=== PATIENT | male | born 1975 | race Hispanic/Latino ===

== ENCOUNTER 2023-01-20 10:47 | Observation (INO) | payer OTHER ==
[~2023-01-20] VITALS: Ht 162.6 cm; Wt 107.0 kg
[2023-01-20] MEDS ORDERED: ASPIRIN 81 MG CHEW TAB PO STA (11:01)
[2023-01-20] MEDS ORDERED: HYDRALAZINE HCL 20 MG/ML VIAL IV STA (11:01)
[2023-01-20] MEDS ORDERED: LABETALOL HCL 5 MG/ML 20ML VIAL IV STA (11:01)
[2023-01-20] MEDS ORDERED: HYDRALAZINE HCL 20 MG/ML VIAL ONE (11:17)
[2023-01-20 11:20] LABS: BASOPHILS # (AUTO) 0.1 (0.0-0.1); BASOPHILS % 1.5 % (0.0-1.0); EOSINOPHILS # (AUTO) 0.3 (0.0-0.4); HEMATOCRIT 51.4 % (38.2-49.6); HEMOGLOBIN 16.9 g/dL (14.0-18.0); LYMPHOCYTES # (AUTO) 3.2 (1.0-3.2); LYMPHOCYTES % 42.3 % (18.0-39.1); MEAN CORPUSCULAR HEMOGLOBIN 28.9 pg (28-32); MEAN CORPUSCULAR HGB CONC 32.9 g/dL (31-35); MONOCYTES # (AUTO) 0.6 (0.2-0.8); MONOCYTES % 7.5 % (4.4-11.3); NEUTROPHILS # (AUTO) 3.4 (2.1-6.9); NEUTROPHILS % 44.4 % (38.7-80.0); PLATELET COUNT 237 x10e3/uL (140-360); RED BLOOD COUNT 5.84 x10e6/uL (4.3-5.7); RED CELL DISTRIBUTION WIDTH 15.8 % (11.7-14.4)
[2023-01-20 11:58] LABS: INR 0.98; PROTHROMBIN TIME 13.5 seconds (11.9-14.5)
[2023-01-20 11:59] LABS: PARTIAL THROMBOPLASTIN TIME 34.8 seconds (23.8-35.5)
[2023-01-20 12:06] LABS: ALANINE AMINOTRANSFERASE 41 IU/L (0-55); ALBUMIN/GLOBULIN RATIO 1.3 (0.8-2.0); ALKALINE PHOSPHATASE 84 IU/L (40-150); ANION GAP 13.6 mmol/L (8-16); BLOOD UREA NITROGEN 9 mg/dL (7-26); BUN/CREATININE RATIO 9 (6-25); CALCIUM 8.6 mg/dL (8.4-10.2); CARBON DIOXIDE 26 mmol/L (22-29); CHLORIDE 104 mmol/L (98-107); CREATINE KINASE 137 IU/L (30-200); CREATININE, SERUM 0.96 mg/dL (0.72-1.25); GLUCOSE 111 mg/dL (74-118); MAGNESIUM 2.2 MG/DL (1.3-2.1); POTASSIUM 3.6 mmol/L (3.5-5.1); SODIUM 140 mmol/L (136-145)
[2023-01-20] MEDS ORDERED: NIFEDIPINE CR 30 MG TAB PO ONE (12:30)
[2023-01-20] MEDS ORDERED: HYDRALAZINE HCL 20 MG/ML VIAL IV PRN (12:45)
[2023-01-20] MEDS ORDERED: ONDANSETRON HCL INJ 2MG/ML 2ML 2 MG/ML VIAL IV PRN (12:45)
[2023-01-20] MEDS ORDERED: PANTOPRAZOLE SO40 MG PO (13:17)
[2023-01-20] MEDS ORDERED: LOPRESSOR25 MG PO (13:18)
[2023-01-20] MEDS ORDERED: PROCARDIA XL30 MG (13:18)
[2023-01-20] MEDS ORDERED: HYDRALAZINE HCL25 MG PO (13:19)
[2023-01-20 15:20] VITALS: BP 180/110
[2023-01-20 15:33] VITALS: BP 180/110
[2023-01-20 17:42] VITALS: BP 155/92
[2023-01-20] MEDS: METOPROLOL TARTRATE 50 MG TAB PO SCH (17:49)
[2023-01-20 19:16] LABS: CREATINE KINASE MB 1.4 ng/mL (0-5.0)
[2023-01-20 19:58] VITALS: BP 149/88
[2023-01-20 20:00] VITALS: BP 149/88
[2023-01-20] MEDS: ACETAMINOPHEN 325 MG TAB PO PRN (20:14)
[2023-01-20] MEDS ORDERED: ATORVASTATIN 20 MG TAB PO SCH (21:00)
[2023-01-20] MEDS ORDERED: NIFEDIPINE CR 30 MG TAB PO SCH (21:00)
[2023-01-21 00:45] LABS: CREATINE KINASE MB 1.5 ng/mL (0-5.0)
[2023-01-21 01:13] VITALS: BP 129/78
[2023-01-21 05:12] LABS: BASOPHILS # (AUTO) 0.1 (0.0-0.1); BASOPHILS % 1.4 % (0.0-1.0); EOSINOPHILS # (AUTO) 0.3 (0.0-0.4); EOSINOPHILS % 4.2 % (0.0-6.0); HEMATOCRIT 50.9 % (38.2-49.6); HEMOGLOBIN 16.4 g/dL (14.0-18.0); LYMPHOCYTES # (AUTO) 2.8 (1.0-3.2); LYMPHOCYTES % 38.6 % (18.0-39.1); MEAN CORPUSCULAR HGB CONC 32.2 g/dL (31-35); MEAN CORPUSCULAR VOLUME 90.1 fL (81-99); MONOCYTES # (AUTO) 0.6 (0.2-0.8); MONOCYTES % 7.9 % (4.4-11.3); NEUTROPHILS # (AUTO) 3.5 (2.1-6.9); NEUTROPHILS % 47.5 % (38.7-80.0); PLATELET COUNT 242 x10e3/uL (140-360); RED BLOOD COUNT 5.65 x10e6/uL (4.3-5.7); RED CELL DISTRIBUTION WIDTH 15.8 % (11.7-14.4)
[2023-01-21 05:26] VITALS: BP 137/69
[2023-01-21 05:26] LABS: ALBUMIN 3.4 g/dL (3.5-5.0); ALBUMIN/GLOBULIN RATIO 1.2 (0.8-2.0); ANION GAP 13.4 mmol/L (8-16); CALCIUM 8.6 mg/dL (8.4-10.2); CREATININE, SERUM 0.92 mg/dL (0.72-1.25); POTASSIUM 3.4 mmol/L (3.5-5.1)
[2023-01-21 08:33] LABS: CREATINE KINASE MB 1.6 ng/mL (0-5.0)
[2023-01-21 08:35] VITALS: BP 141/90
[2023-01-21] MEDS ORDERED: LOSARTAN POTASSIUM 100 MG TAB PO SCH (09:00)
[2023-01-21] MEDS ORDERED: ASPIRIN 81 MG ENTERIC COATED PO SCH (09:00)
[2023-01-21] MEDS ORDERED: HYDRALAZINE HCL 25 MG TAB PO SCH (09:00)
[2023-01-21] MEDS ORDERED: HYDROCHLOROTHIAZIDE 25 MG TAB PO SCH (09:00)
[2023-01-21] MEDS: METOPROLOL TARTRATE 50 MG TAB PO SCH ×2 (09:29→17:32)
[2023-01-21] MEDS: ACETAMINOPHEN 325 MG TAB PO PRN (09:35)
[2023-01-21] MEDS ORDERED: POTASSIUM CHLORIDE 20 MEQ TAB CR PO ONE (11:00)
[2023-01-21 12:03] VITALS: BP 134/89
[2023-01-21 16:09] VITALS: BP 121/75
[2023-01-21] MEDS ORDERED: NIFEDIPINE ER30 M1 PO (16:35)
[2023-01-21] MEDS ORDERED: METOPROLOL TART50 MG PO (16:35)
[2023-01-21] MEDS ORDERED: COZAAR100 MG PO (16:35)
[2023-01-21] MEDS ORDERED: ASPIRIN EC81 MG PO (16:35)
[2023-01-21] MEDS ORDERED: ESIDRIX25 MG PO (16:35)
[2023-01-21] MEDS ORDERED: LIPITOR20 MG PO (16:35)
[2023-01-21] MEDS ORDERED: ONDANSETRON HCL 4 MG ORAL DISINTEGRATING TAB PO PRN (16:45)
== END 2023-01-21 17:48 | disposition home or self-care (01) ==
LOC: ER 11:03 → ERHOLD 12:49 → MED/SURG3 14:53
PROVIDERS: ADMIT Internal Medicine; ATTEND Internal Medicine
DX: I16.0 Hypertensive urgency (principal); E66.01 Morbid (severe) obesity due to excess calories; Z68.41 Body mass index [BMI] 40.0-44.9, adult; G47.30 Sleep apnea, unspecified; I51.7 Cardiomegaly; Z87.891 Personal history of nicotine dependence; R06.00 Dyspnea, unspecified; Z20.822 Contact with and (suspected) exposure to COVID-19; R94.31 Abnormal electrocardiogram [ECG] [EKG]
CPT/HCPCS: 0223U; 36415 ×2; 71045; 80053 ×2; 80061; 82550 ×2; 82553 ×2; 83735; 83880; 84484 ×2; 85025 ×2; 85610; 85730; 93005; 93306; 99284; G0378 ×2; J0360; J3490